=== PATIENT | male | born 1950 | race Caucasian/White ===

== ENCOUNTER 2023-10-26 06:25 | Day surgery (SDC) | payer MEDICARE, OTHER ==
[~2023-10-26 06:25] MED LIST: Dextrose 5%-0.45% NaCl 1,000 ML IV SCH
[2023-10-26] MEDS ORDERED: Midazolam 1 MG/ML 2 ML SDV IV ONE ×3 (07:03→07:08)
[2023-10-26] MEDS ORDERED: Midazolam 1 MG/ML 2 ML SDV ONE (07:03)
[2023-10-26] MEDS ORDERED: fentaNYL 100 MCG/2 ML SDV ONE (07:03)
[2023-10-26] MEDS ORDERED: fentaNYL 100 MCG/2 ML SDV IV ONE ×3 (07:03→07:07)
== END 2023-10-26 09:30 | disposition home or self-care (01) ==
LOC: DL.ENDO 06:25
PROVIDERS: ATTEND Internal Medicine Gastroenterology
DX: K29.50 Unspecified chronic gastritis without bleeding (principal); E78.5 Hyperlipidemia, unspecified; I10 Essential (primary) hypertension; E11.42 Type 2 diabetes mellitus with diabetic polyneuropathy; E03.9 Hypothyroidism, unspecified; E66.09 Other obesity due to excess calories; Z68.42 Body mass index [BMI] 45.0-49.9, adult; Z98.890 Other specified postprocedural states
CPT/HCPCS: 87077; 88305; J2250; J3010; J7042

== ENCOUNTER 2024-12-18 12:30 | Emergency (ER) | payer MEDICARE, OTHER ==
[2024-12-18] MEDS ORDERED: Sodium Chloride 0.9% 10 ML Syringe FLUSH PRN (12:35)
[2024-12-18 12:54] LABS: BASOPHILS PERCENT AUTO 0.7 % (0.0-1.0); EOSINOPHILS PERCENT AUTO 1.2 % (1.0-3.0); HEMATOCRIT 41.4 % (40.0-54.0); HEMOGLOBIN 13.8 g/dL (14.0-18.0); LYMPHOCYTES PERCENT AUTO 12.6 % (20.5-50.1); MEAN CORPUSCULAR HEMOGLOBIN 28.1 pg (27.0-34.0); MEAN CORPUSCULAR HGB CONC 33.3 g/dL (33.0-35.0); MEAN CORPUSCULAR VOLUME 84.3 fL (80-100); MONOCYTES PERCENT AUTO 10.6 % (2-8); NEUTROPHILS PERCENT AUTO 74.9 % (42.2-75.2); PLATELET COUNT,PLT 208 10^3/uL (150-450); RED BLOOD CELL COUNT 4.91 10^6/uL (4.6-6.2); WHITE BLOOD CELL COUNT,WBC 9.5 10^3/uL (5.0-10.0)
[2024-12-18 13:21] LABS: B-TYPE NATRIURETIC PEPTIDE,BNP 82 pg/ml (0-100)
[2024-12-18 13:24] LABS: ALANINE AMINOTRANSFERASE,ALT 31 U/L (16-63); ALBUMIN 3.3 g/dL (3.4-5.0); ALKALINE PHOSPHATASE 85 U/L (46-116); ANION GAP 14.8 mEq/L (7-13); ASPARTATE AMNIOTRANSFERASE,AST 31 U/L (15-37); BILIRUBIN TOTAL 0.6 mg/dL (0.2-1.0); BLOOD UREA NITROGEN,BUN 14 mg/dL (7-18); BUN/CREATININE RATIO 10.8 (No establ ref range); CARBON DIOXIDE,CO2 28 mmol/L (21-32); CHLORIDE,CL 102 mmol/L (98-107); GLUCOSE RANDOM 204 mg/dL (70-99); MAGNESIUM 1.8 mg/dL (1.8-2.4); POTASSIUM,K 3.8 mmol/L (3.5-5.1); PROTEIN TOTAL,TP 7.8 g/dL (6.4-8.2); SODIUM,NA 141 mmol/L (136-145)
[2024-12-18 13:26] LABS: A/G RATIO 0.73; ESTIMATED GFR 58 mL/min (>=60)
[2024-12-18 13:30] LABS: PROTHROMBIN TIME 10.6 SEC (9.0-12.0); PTT,PARTIAL THROMBOPLSTIN TIME 26.7 SEC (22.0-34.0)
[2024-12-18] MEDS: Heparin Sodium 5,000 Units/ML Vial IVPUSH ONE (13:41)
[2024-12-18] MEDS: Heparin Sodium/0.45% NaCl 25,000 UNITS/500 ML BAG IV SCH (13:42)
[2024-12-18] MEDS: traMADol 50 MG Tab PO ONE (14:35)
[2024-12-18] MEDS: Gabapentin 400 MG Cap PO ONE (14:41)
[2024-12-18] MEDS: Aspirin 81 MG Tab.Chew PO ONE (15:52)
== END 2024-12-18 16:32 ==
LOC: DL.ED 12:30
DX: I21.4 Non-ST elevation (NSTEMI) myocardial infarction (principal); I10 Essential (primary) hypertension; E11.40 Type 2 diabetes mellitus with diabetic neuropathy, unspecified; E03.9 Hypothyroidism, unspecified; E66.9 Obesity, unspecified; Z86.16 Personal history of COVID-19; Z90.49 Acquired absence of other specified parts of digestive tract; Z79.899 Other long term (current) drug therapy; Z79.890 Hormone replacement therapy; Z79.84 Long term (current) use of oral hypoglycemic drugs; Z79.891 Long term (current) use of opiate analgesic; Z79.82 Long term (current) use of aspirin; Z79.51 Long term (current) use of inhaled steroids
CPT/HCPCS: 36415; 80053; 83735; 83880; 84484; 85025; 85610; 85730; 93005; 93010; 96365; 96366; 99285; A9270; J1644